=== PATIENT | female | born 1965 | race Caucasian/White ===

== ENCOUNTER 2024-09-09 11:19 | Outpatient (OUT) | payer OTHER, SELFPAY ==
--- NOTE | 2024-09-09 | XR_ITS ---
The [address] [address] Patient Name: CARMEN FAM MRN: [id number] date: 1965 Sex: F Assigned Patient Location: [facility] Current Patient Location: Accession/Order Number: [id number] Exam Date: 09/09/2024 11:44 Report Date: 09/10/2024 06:48 At the request of: ALBA FERRELL Procedure: XR ankle LT 2V PROCEDURE: XR ankle LT 2V, XR foot LT 2V HISTORY: SWELLING OF LEFT FOOT, SWELLING OF ANKLE JOINT COMPARISON: None. FINDINGS: BONES:Cortical irregularity/avulsion defect suspected along lateral margin of calcaneus, distal to the lateral malleolus. SOFT TISSUES:Mild lateral soft tissue swelling. EFFUSION:None visible. OTHER: Negative. XR/XR ankle LT 2V IMPRESSION: 1. Suspect lateral cortical avulsion fracture distal to the lateral malleolus. Mild lateral soft tissue swelling, but < suspected for ligament injury or cortical avulsion fracture. Electronically authenticated by: TJ GONSALES Date: 09/10/2024 06:48
--- NOTE | 2024-09-09 | XR_ITS ---
The [address] [address] Patient Name: CARMEN FAM MRN: [id number] date: 1965 Sex: F Assigned Patient Location: [facility] Current Patient Location: Accession/Order Number: [id number] Exam Date: 09/09/2024 11:44 Report Date: 09/10/2024 06:48 At the request of: ALBA FERRELL Procedure: XR foot LT 2V PROCEDURE: XR ankle LT 2V, XR foot LT 2V HISTORY: SWELLING OF LEFT FOOT, SWELLING OF ANKLE JOINT COMPARISON: None. FINDINGS: BONES:Cortical irregularity/avulsion defect suspected along lateral margin of calcaneus, distal to the lateral malleolus. SOFT TISSUES:Mild lateral soft tissue swelling. EFFUSION:None visible. OTHER: Negative. XR/XR foot LT 2V IMPRESSION: 1. Suspect lateral cortical avulsion fracture distal to the lateral malleolus. Mild lateral soft tissue swelling, but < suspected for ligament injury or cortical avulsion fracture. Electronically authenticated by: TJ GONSALES Date: 09/10/2024 06:48
== END 2024-09-09 11:20 | disposition home or self-care (01) ==
LOC: RAD 11:22
PROVIDERS: PCP Family Medicine; Visit Provider Family Medicine
DX: M79.89 Other specified soft tissue disorders (principal); M25.472 Effusion, left ankle; M25.475 Effusion, left foot
CPT/HCPCS: 73600; 73620

== ENCOUNTER 2024-09-12 13:49 | Outpatient (OUT) | payer OTHER, SELFPAY ==
--- NOTE | 2024-09-12 13:59 | XR_ITS ---
The [address] [address] Patient Name: CARMEN FAM MRN: [id number] date: 1965 Sex: F Assigned Patient Location: [facility] Current Patient Location: Accession/Order Number: [id number] Exam Date: 09/12/2024 14:10 Report Date: 09/13/2024 06:04 At the request of: PETRA IRBY Procedure: XR ankle LT min 3V PROCEDURE: XR foot LT min 3V, XR ankle LT min 3V HISTORY: Left Foot Pain ; left ankle pain; lateral foot and ankle pain and swelling since injury several days ago COMPARISON: XR left foot and ankle 09/09/2024 FINDINGS: BONES:No appreciable fracture, acute abnormality, or significant arthropathy. SOFT TISSUES:Mild soft tissue swelling; lateral greater than medial. EFFUSION:None visible. OTHER: Negative. XR/XR ankle LT min 3V IMPRESSION: 1. No convincing acute bone abnormality. Findings on prior study appear to represent summation artifact from posterior calcaneus due to angulation. Consider follow-up CT imaging of the foot and ankle if clinically indicated. Electronically authenticated by: TJ GONSALES Date: 09/13/2024 06:04
--- NOTE | 2024-09-12 14:08 | XR_ITS ---
The [address] [address] Patient Name: CARMEN FAM MRN: [id number] date: 1965 Sex: F Assigned Patient Location: [facility] Current Patient Location: Accession/Order Number: [id number] Exam Date: 09/12/2024 14:10 Report Date: 09/13/2024 06:04 At the request of: PETRA IRBY Procedure: XR foot LT min 3V PROCEDURE: XR foot LT min 3V, XR ankle LT min 3V HISTORY: Left Foot Pain ; left ankle pain; lateral foot and ankle pain and swelling since injury several days ago COMPARISON: XR left foot and ankle 09/09/2024 FINDINGS: BONES:No appreciable fracture, acute abnormality, or significant arthropathy. SOFT TISSUES:Mild soft tissue swelling; lateral greater than medial. EFFUSION:None visible. OTHER: Negative. XR/XR foot LT min 3V IMPRESSION: 1. No convincing acute bone abnormality. Findings on prior study appear to represent summation artifact from posterior calcaneus due to angulation. Consider follow-up CT imaging of the foot and ankle if clinically indicated. Electronically authenticated by: TJ GONSALES Date: 09/13/2024 06:04
== END 2024-09-12 13:50 | disposition home or self-care (01) ==
LOC: RAD 13:49
PROVIDERS: PCP Family Medicine; Visit Provider Physician Assistant
DX: M25.572 Pain in left ankle and joints of left foot (principal); M79.672 Pain in left foot
CPT/HCPCS: 73610; 73630